=== PATIENT | female | born 1950 | race Caucasian/White ===

== ENCOUNTER 2016-12-18 17:02 | Emergency (ER) | payer OTHER ==
[2016-12-18 17:08] VITALS: BP 153/71; BMI 21.7
--- NOTE | 2016-12-18 17:46 | DR.GENAD ---
HPI - PCP Primary Care Physician: adam robert - HPI Comment HPI Comment: HISTORY BELOW. ALSO TODAY, PATIENT IS DIZZY AND WEAK. PATIENT IS NON SMOKER AND DO NOT HAVE SIGNIFICANT MEDICAL ILNESS. HAVE FAMILY HIST OF CAD AND SUDDEN CARDIAC . - Complaint/Symptoms Chief Complaint Doctors Comments: ALL WEEK DEEP ACHING CHEST AND LEFT SHOULDER AND ARM ACHING THAT GOT WORSE TODAY. LEFT NECK PAIN TODAY WELL. PATIENT TOOK 325 MG ASPRIN BEFORE COMING. PAIN IMPROVE AT TIME OF PRESENTATION. Chief Complaint:: patient stated her left shoulder and arm has been hurting for over a week and her chest has been having a deep aching all week also. today its worse and the left side of her neck is hurting. - Nurses notes reviewed Nurses Notes Review: Yes - Source History Provided: Patient - Mode of Arrival Mode of Arrival: Ambulatory - Timing Onset of Chief Complaint: 12/11/16 Came on: Gradually - Duration Duration: Constant Duration: Days - Severity Severity: Moderate PMH - PMH Past Medical History: No Past Surgical History: Yes Surgical History: Hysterectomy - Family History History of Family Medical Conditions: No - Social History Does patient currently use any type of tobacco product: No Have you used tobacco products in the last 12 months: No Type of Tobacco Use: None Does any household member use tobacco: No Alcohol Use: None Do you use any recreational Drugs:: No Lives With: Family Lives Where: Home - infectious screening In the last 2 months have you had wt loss of >10#?: NO Have you had fever, night sweats or hemotysis?: No Have you traveled outside the country in the last 6 months?: No Isolation: Standard ROS - Review of Systems Constitutional: Weakness, Fatigue. negative: Chills, Diaphoresis, Fever Eyes: No Symptoms Reported. negative: Eye Pain, Discharge ENTM: negative: Ear Pain, Nose Discharge, Nose Congestion, Throat Pain Respiratoy: Short of Breath. negative: Productive Cough, Non-Productive Cough, Wheezing, Hemoptysis Cardiovascular: Chest Pain. negative: Edema, Palpitations Gastrointestinal/Abdominal: No Symptoms Reported. negative: Abdominal Pain, Diarrhea, Nausea, Vomiting Genitourinary: No Symptoms Reported. negative: Dysuria, Frequency, Hematuria Neurological: Weakness, Dizziness Musculoskeletal: Left, Shoulder (ACHING), Arm (ACKING) Integumentary: No Symptoms Reported Hematologic/Lymphatic: No Symptoms Reported Endocrine: No Symptoms Reported All Other Systems: Reviewed and Negative PE - Vital Signs Vitals: Temperature 98.7 F Pulse Rate 82 Respiratory Rate 16 Blood Pressure 153/71 O2 Sat by Pulse Oximetry 98 MDM - Additional Information Additional Information Obtained From: Family - Differential Diagnosis Differential Diagnosis: CHEST PAIN, CAD, NI, UNSTABLE ANGINA Course - Treatment Treatment: SEE ORDERS. PAIN WORSE IN ED AND RESOLVE WITH ONE S/L NTG., SECOND SETS NOF CARDIAC ENZYMES 4HRS APART IS NORMAL IN ED. - Education/Counseling Education/Counseling: Patient, Family, Education Educated On: Treatment, Diagnosis ROR - Labs Reviewed Laboratory Results Reviewed?: Yes Result Diagrams: 12/18/16 17:20 12/18/16 17:20 Laboratory: WBC 8.7 X10^3/uL (3.6-10.0) 12/18/16 17:20 RBC 4.51 X10^6/uL (3.5-5.4) 12/18/16 17:20 Hgb 14.1 g/dL (12.0-16.0) 12/18/16 17:20 Hct 40.4 % (36.0-47.0) 12/18/16 17:20 MCV 89.5 fL (80.0-100.0) 12/18/16 17:20 MCH 31.3 pg (27.0-34.0) 12/18/16 17:20 MCHC 34.9 g/dL (33.0-35.0) 12/18/16 17:20 RDW 12.6 % (11.6-16.5) 12/18/16 17:20 Plt Count 233 X10^3/uL (150.0-450.0) 12/18/16 17:20 MPV 9.4 fL (7.4-11.0) 12/18/16 17:20 Neut % 68.1 % (42.0-75.0) 12/18/16 17:20 Lymph % 23.3 % (21.0-51.0) 12/18/16 17:20 [place] % 5.8 % (0.0-13.0) 12/18/16 17:20 Eos % 1.5 % (0.9-2.9) 12/18/16 17:20 Baso % 1.3 % (0.2-1.0) H 12/18/16 17:20 Neut # 5.9 x10^3/uL (2.2-4.8) H 12/18/16 17:20 Lymph # 2.0 X10^3/uL (1.3-2.9) 12/18/16 17:20 [place] # 0.5 x10^3/uL (0.3-0.8) 12/18/16 17:20 Eos # 0.1 x10^3/uL (0.0-0.2) 12/18/16 17:20 Baso # 0.1 X10^3/uL (0.0-0.1) 12/18/16 17:20 Absolute Nucleated RBC 0.1 /100WBC 12/18/16 17:20 INR Target Range - 12/18/16 17:20 INR 0.94 (0.8-1.3) 12/18/16 17:20 PTT 31.5 SECONDS (22.9-36.5) 12/18/16 17:20 PTT Comment - 12/18/16 17:20 Sodium 138 mmol/L (136-145) 12/18/16 17:20 Corrected Sodium TNP 12/18/16 17:20 Potassium 4.1 mmol/L (3.5-5.1) 12/18/16 17:20 Chloride 107 mmol/L (98-107) 12/18/16 17:20 Carbon Dioxide 24.3 mmol/L (21-32) 12/18/16 17:20 BUN 19 mg/dL (7-18) H 12/18/16 17:20 Creatinine 0.69 mg/dL (0.55-1.02) 12/18/16 17:20 Est GFR (MDRD) Af Amer > 60 (>60) 12/18/16 17:20 Est GFR (MDRD) Non-Af > 60 (>60) 12/18/16 17:20 Glucose 83 mg/dL (65-99) 12/18/16 17:20 Calcium 8.4 mg/dL (8.5-10.1) L 12/18/16 17:20 Corrected Calcium TNP 12/18/16 17:20 Total Bilirubin 0.20 mg/dL (0.2-1.0) 12/18/16 17:20 AST 19 Units/L (15-37) 12/18/16 17:20 ALT 22 Units/L (12-78) 12/18/16 17:20 Alkaline Phosphatase 57 Units/L (46-116) 12/18/16 17:20 Creatine Kinase 81 Units/L (26-192) 12/18/16 21:30 CK-MB (CK-2) 1.4 ng/mL (0-4.0) 12/18/16 21:30 CK/CKMB % Calc 1.7 % (<4) 12/18/16 21:30 Troponin I < 0.02 ng/mL (0-1.5) 12/18/16 21:30 Total Protein 6.8 g/dL (6.4-8.2) 12/18/16 17:20 Albumin 3.5 g/dL (3.4-5.0) 12/18/16 17:20 Globulin 3.3 g/dL (2.5-4.5) 12/18/16 17:20 Albumin/Globulin Ratio 1.1 Ratio (1.1-2.1) 12/18/16 17:20 Triglycerides 139 mg/dL (0-150) 12/18/16 17:20 Cholesterol 191 mg/dL (0-200) 12/18/16 17:20 LDL Cholesterol, Calc 111 mg/dL (0-100) H 12/18/16 17:20 HDL Cholesterol 52 mg/dL (40-60) 12/18/16 17:20 Cholesterol/HDL Ratio 3.7 (0.0-5.0) 12/18/16 17:20 - XRAY XRAY Interpreted by: Radiologist XRAY Findings: REPORT DISCUSS WITH PATIENT AND FAMILY. - EKG Rhythm: NSR (EKG NOTED.) - Diagnosis Discharge Problem: Chest pain Qualifiers: Chest pain type: precordial pain Qualified Code(s): R07.2 - Precordial pain - Discharge Plan Disposition: 01 HOME, SELF-CARE Condition: Stable - Follow ups/Referrals Follow ups/Referrals: LAUREN ROBERT [Primary Care Provider] - 3 days - Instructions Instructions: Chest Pain Observation Additional Instructions: RETURN TO ED IF WORSE.
[2016-12-18 17:52] LABS: BASOPHILS # (AUTO) 0.1 X10^3/uL (0.0-0.1); BASOPHILS % (AUTO) 1.3 % (0.2-1.0); EOSINOPHILS # (AUTO) 0.1 x10^3/uL (0.0-0.2); EOSINOPHILS % (AUTO) 1.5 % (0.9-2.9); HEMATOCRIT 40.4 % (36.0-47.0); HEMOGLOBIN 14.1 g/dL (12.0-16.0); LYMPHOCYTES % (AUTO) 23.3 % (21.0-51.0); MEAN CORPUSCULAR HEMOGLOBIN 31.3 pg (27.0-34.0); MEAN CORPUSCULAR HGB CONC 34.9 g/dL (33.0-35.0); MEAN CORPUSCULAR VOLUME 89.5 fL (80.0-100.0); MEAN PLATELET VOLUME 9.4 fL (7.4-11.0); MONOCYTES # (AUTO) 0.5 x10^3/uL (0.3-0.8); MONOCYTES % (AUTO) 5.8 % (0.0-13.0); NEUTROPHILS # (AUTO) 5.9 x10^3/uL (2.2-4.8); NEUTROPHILS % (AUTO) 68.1 % (42.0-75.0); PLATELET COUNT 233 X10^3/uL (150.0-450.0); RED BLOOD COUNT 4.51 X10^6/uL (3.5-5.4); RED CELL DISTRIBUTION WIDTH 12.6 % (11.6-16.5); WHITE BLOOD COUNT 8.7 X10^3/uL (3.6-10.0)
[2016-12-18] MEDS ORDERED: NITROSTAT SL PRN (17:59)
[2016-12-18] MEDS ORDERED: PEPCID 20 MG IV PREMIX* 20 MG/50 ML BAG IV ONE ×2 (17:59→18:14)
[2016-12-18 18:08] LABS: BLOOD UREA NITROGEN 19 mg/dL (7-18); CALCIUM 8.4 mg/dL (8.5-10.1); CARBON DIOXIDE 24.3 mmol/L (21-32); CHLORIDE 107 mmol/L (98-107); CREATININE 0.69 mg/dL (0.55-1.02); SODIUM 138 mmol/L (136-145); TROPONIN I < 0.02 ng/mL (0-1.5); eGFR BLACK RACES > 60 (>60); eGFR NON BLACK RACES > 60 (>60)
[2016-12-18 18:11] LABS: ALANINE AMINOTRANSFERASE 22 Units/L (12-78); ALBUMIN 3.5 g/dL (3.4-5.0); ALKALINE PHOSPHATASE 57 Units/L (46-116); ASPARTATE AMINO TRANSFERASE 19 Units/L (15-37); CHOL/HDL RATIO 3.7 (0.0-5.0); CHOLESTEROL 191 mg/dL (0-200); CKMB % 2.1 % (<4); CREATINE KINASE 98 Units/L (26-192); CREATINE KINASE MB 2.1 ng/mL (0-4.0); HDL CHOLESTEROL 52 mg/dL (40-60); TOTAL PROTEIN 6.8 g/dL (6.4-8.2); TRIGLYCERIDES 139 mg/dL (0-150)
--- NOTE | 2016-12-18 18:12 | CT ---
CT head without contrast Indication: Dizziness and chest pain Technique: Axial images from the skullbase to the vertex without contrast. Coronal and sagittal refor mats provided. Findings: There is no acute intracranial hemorrhage, mass or mass effect. No extra-axial fluid collec tion or abnormal area of hypoattenuation to suggest infarction identified. Ventricles and sulci are n ormal. Review of bone windows shows no osseous lesion. Paranasal sinuses and mastoid air cells are cl ear. Impression: No acute intracranial abnormality. Reported By:
[2016-12-18] MEDS ORDERED: NITROSTAT SL ONE (18:14)
--- NOTE | 2016-12-18 18:14 | RAD ---
HISTORY: Chest pain Study: Chest AP portable Comparison: February 27, 2015 Findings: The trachea is midline. The cardiac silhouette is unremarkable. The lungs are clear without focal i nfiltrate or effusion. The bony thorax is unremarkable. A left-sided breast implant overlies the ch est peer E IMPRESSION: 1. No acute cardiopulmonary disease. Reported By:
[2016-12-18 22:03] LABS: CKMB % 1.7 % (<4); CREATINE KINASE 81 Units/L (26-192); CREATINE KINASE MB 1.4 ng/mL (0-4.0); TROPONIN I < 0.02 ng/mL (0-1.5)
== END 2016-12-18 22:27 | disposition home or self-care (01) ==
LOC: ER 17:10
DX: R07.2 Precordial pain (principal); Z79.01 Long term (current) use of anticoagulants
CPT/HCPCS: 36415; 70450; 71010; 80053; 80061; 82550; 82553; 84484; 85025; 85610; 85730; 93005; 93010; 96365; 96374; 99283; A4222; S0028